=== PATIENT | female | born 1965 | race Caucasian/White ===

== ENCOUNTER 2025-08-09 15:15 | Outpatient (CLI) | payer BC, OTHER | END 2025-08-09 15:16 | disposition home or self-care (01) | LOC: CSHDTY/OP 15:15 | PROVIDERS: ATTEND Nurse Practitioner Family | DX: Z71.3 Dietary counseling and surveillance (principal) | CPT/HCPCS: 97802 ==

== ENCOUNTER 2025-09-15 12:14 | Outpatient (CLI) | payer BC, OTHER | END 2025-09-15 12:15 | disposition home or self-care (01) | LOC: CSHDTY/OP 12:14 | PROVIDERS: ATTEND Nurse Practitioner Family | DX: Z71.3 Dietary counseling and surveillance (principal) | CPT/HCPCS: 97802 ==